=== PATIENT | male | born 1970 | race African-American/Black ===

== ENCOUNTER 2025-07-02 14:20 | Emergency (ER) | payer OTHER ==
[2025-07-02] MEDS ORDERED: cefTRIAXone (ROCEPHIN) 2 GM VIAL ONE ×2 (15:21→15:40)
[2025-07-02 15:39] LABS: #Basophils 0.2 thou/uL (0.0-0.2); #Eosinophils 0.4 thou/uL (0.0-0.7); #Lymphocytes 2.2 thou/uL (1.20-3.40); #Monocytes 1.2 thou/uL (0.11-0.59); #Neutrophils 12.7 thou/uL (1.40-6.50); %Basophils 1.4 % (0.0-1.0); %Eosinophils 2.5 % (0.0-10.0); %Lymphocytes 13.0 % (21.0-51.0); %Monocytes 6.9 % (0.0-10.0); %Neutrophils 76.2 % (42.0-75.0); Hematocrit 35.1 % (42.0-52.0); Hemoglobin 11.8 g/dL (14.0-18.0); Mean Corpuscular Hemoglobin 25.3 pg (27.0-31.0); Mean Corpuscular Volume 75.2 fl (78.0-98.0); Platelet Count 352 10x3/uL (130-400); Red Blood Cell (RBC) Count 4.67 mill/uL (4.70-6.10); White Blood Cell (WBC) Count 16.7 10x3/uL (4.8-10.8)
[2025-07-02 15:54] LABS: AST (SGOT) 30 U/L (11-34); Albumin 2.8 g/dL (3.1-4.5); Alkaline Phosphatase 80 U/L (40-110); Anion Gap 17 mmol/L (10-20); BUN (Urea Nitrogen) 23 mg/dL (8.4-25.7); Bilirubin, Total 0.2 mg/dL (0.3-1.2); Calc. Creatinine Clearance 0 mL/min (70-130); Calcium 8.8 mg/dL (7.8-10.44); Carbon Dioxide 24 mmol/L (22-29); Chloride 103 mmol/L (98-107); Globulin 5.2 g/dL (2.4-3.5); Glucose 175 mg/dL (70-105); Potassium 5.6 mmol/L (3.5-5.1); Sodium 138 mmol/L (136-145)
[2025-07-02 16:07] LABS: ALT (SGPT) Less than 20 U/L (Less than 45)
== END 2025-07-02 22:12 | disposition short-term general hospital (02) ==
LOC: EEVIPCON 14:20 → NAV ERS 14:20
DX: T81.41XA Infection following a procedure, superficial incisional surgical site, initial encounter (principal); E11.9 Type 2 diabetes mellitus without complications; I10 Essential (primary) hypertension; J45.909 Unspecified asthma, uncomplicated; Z79.82 Long term (current) use of aspirin; Z79.899 Other long term (current) drug therapy; Z79.4 Long term (current) use of insulin; Z79.51 Long term (current) use of inhaled steroids
CPT/HCPCS: 80053; 83605; 85025; 87040; 93005; 96365; 96375; J0696; J3010; J7030